=== PATIENT | female | born 1990 | race Caucasian/White ===

== ENCOUNTER 2018-03-10 20:59 | Emergency (ER) | payer OTHER, MEDICAID ==
[~2018-03-10] VITALS: Ht 157.5 cm; Wt 136.1 kg
[~2018-03-10 20:59] MED LIST: ACETAMINOPHEN-1 EAC1 PO; CLEOCIN HCL300 MG PO; MEDROLDOSEPACK PO; NOHOMEMEDICATIONS; NORCO 5-325 TA1 EACH PO; PENICILLIN V P500 MG PO; PROMETHAZINE D480 ML PO; TESSALON PERLE100 MG PO; ZOFRAN4 MG PO
[2018-03-10] MEDS ORDERED: TESSALON PERLE100 MG PO (22:15)
[2018-03-10 22:22] VITALS: BP 128/80
== END 2018-03-10 22:24 | disposition home or self-care (01) ==
LOC: M.ERS 20:59
DX: J06.9 Acute upper respiratory infection, unspecified (principal); F17.210 Nicotine dependence, cigarettes, uncomplicated; Z88.0 Allergy status to penicillin; Z88.1 Allergy status to other antibiotic agents